=== PATIENT | female | born 1995 | race Caucasian/White ===

== ENCOUNTER 2019-04-05 19:41 | Emergency (ER) | payer BC ==
[~2019-04-05] VITALS: Ht 160 cm; Wt 67.1 kg
[2019-04-05 20:00] VITALS: BP 123/69
[2019-04-05 20:45] VITALS: BP 120/68
== END 2019-04-05 20:45 | disposition home or self-care (01) ==
LOC: MED 19:41
DX: S80.862A Insect bite (nonvenomous), left lower leg, initial encounter (principal); S80.861A Insect bite (nonvenomous), right lower leg, initial encounter; L03.116 Cellulitis of left lower limb; L03.115 Cellulitis of right lower limb; J30.9 Allergic rhinitis, unspecified; F17.210 Nicotine dependence, cigarettes, uncomplicated; Z88.0 Allergy status to penicillin; W57.XXXA Bitten or stung by nonvenomous insect and other nonvenomous arthropods, initial encounter; Y92.89 Other specified places as the place of occurrence of the external cause; Y93.89 Activity, other specified; Y99.8 Other external cause status
CPT/HCPCS: 81025; 99283